=== PATIENT | male | born 1985 | race Caucasian/White ===

== ENCOUNTER 2018-02-17 15:09 | Emergency (ER) | payer OTHER ==
[~2018-02-17] VITALS: Ht 185.4 cm; Wt 91.2 kg
[2018-02-17 15:15] VITALS: TEMP 37.4; Ht 185.4 cm; Wt 91.2 kg
[2018-02-17] MEDS ORDERED: LIDOCAINE 1% BUFFERED INJ 5 ML VIAL INFIL STA (15:25)
[2018-02-17] MEDS ORDERED: IBUPROFEN 600 MG TAB PO STA (15:29)
--- NOTE | 2018-02-17 15:57 | DIAGNOSTIC IMAGING REPORT ---
L FINGER(S) MIN 2 VIEWS ROUTINE CLINICAL HISTORY: L index finger injury, screw punctured proximal. COMPARISON: None FINDINGS: Alignment of the left second finger is anatomic. There is no acute fracture or radiopaque foreign body within the left second finger. IMPRESSION: No acute fracture or radiopaque foreign body within the left second finger. Electronically signed by: Paul Bullard M.D. 02/17/2018 3:55 PM Dictated Date/Time: 02/17/2018 3:54 PM
--- NOTE | 2018-02-17 16:28 | EMERGENCY ROOM VISIT NOTE ---
ED Visit Note First contact with patient: 15:19 Chief Complaint: "Left index finger cut". History of Present Illness: This patient is a 32-year-old male who presents to the Emergency Department via private vehicle for evaluation of their left index finger laceration. Patient sustained the laceration while at work utilizing a drill when the drill bit passed through the object that he was drilling and into his left index finger. They report a minimal amount of bleeding initially. They note minimal linear numbness into the distal extremity described as the lateral aspect but spares the rest of the finger. They report no decreased range of motion of the affected digit. He notes a previous finger injury when he was younger that had a similar sensation in the finger which after time was better. Patient rates his current discomfort as a 6/10. Patient's Tetanus status is believed to be currently up-to-date. Medications: As noted below Allergies: None PMH: No pertinent SHx: Patient is employed and lives locally ROS: All pertinent positive and negative review of systems are appropriately documented in the History of Present Illness. Physical Exam: VITAL SIGNS - Vital signs and nursing notes were reviewed. GENERAL -32-year-old male appearing his stated age who is in no acute distress. Communicates well with provider and answers questions appropriately. SKIN - There is a 1 cm long circular in nature/puncture-like laceration noted proximal aspect of the left index finger at the lateral most region. The edges gape apart with traction. No foreign bodies appreciated. Upon further examination there are no deep structures including vessel, tendon, or bony structures appreciated. There is no active bleeding noted. MUSCULOSKELETAL - Laceration as described above. +5/5 strength appreciated of the affected digit. Full range of motion of the affected digit. NEUROLOGIC - Spinothalamic tract was found to be intact with ability to discriminate sharp versus dull sensation. No sensory defects of the dorsal column were appreciated utilizing light touch for evaluation. VASCULAR - Capillary refill was brisk. IMAGING: L FINGER(S) MIN 2 VIEWS ROUTINE CLINICAL HISTORY: L index finger injury, screw punctured proximal. COMPARISON: None FINDINGS: Alignment of the left second finger is anatomic. There is no acute fracture or radiopaque foreign body within the left second finger. IMPRESSION: No acute fracture or radiopaque foreign body within the left second finger. Electronically signed by: Paul Bullard M.D. 02/17/2018 3:55 PM Dictated Date/Time: 02/17/2018 3:54 PM ED Course: Patient was seen and evaluated by myself. Risks and benefits of performing primary wound closure versus no repair were discussed with the patient who verbalizes understanding. Verbal consent was obtained prior to performing the procedure. 2 cc of 1% buffered lidocaine was used to perform a local anesthetization of the left second digit. The wound was cleansed and prepped in the typical sterile fashion utilizing normal saline and Betadine. The wound was sterilely draped. Once proper anesthetization was established, the wound was further examined and demonstrated no deep involvement however once the wound was cleansed did begin with a pulsatile bleed. The wound was copiously irrigated with normal saline and Betadine. The wound was closed using 3 simple, 5-0 nylon sutures with the wound edges being well approximated. Pressure dressing applied 15 minutes was removed and no more bleeding was noted. He had excellent capillary refill. This was then dressed with a bacitracin dressing and finger splint. Patient tolerated the procedure well. No complications were met. He will be given Keflex for infection prophylaxis. He is to follow with Worker's Comp. regarding his injury. Patient educated on worrisome symptoms for return visit to the Emergency Department. Patient discharged to home in good condition. In the evaluation and treatment of this patient, the following differential diagnoses were considered: Finger Fracture, Finger Dislocation, Finger Sprain, Finger Contusion, Jersey Finger, or Mallet Finger. Current/Historical Medications Scheduled Cephalexin Monohydrate (Keflex), 500 MG PO TID Allergies Coded Allergies: No Known Allergies (Unverified , 02/17/18) Vital Signs Date Time Temp Pulse Resp B/P (MAP) Pulse Ox O2 Delivery O2 Flow Rate FiO2 02/17/18 16:53 84 18 137/81 97 02/17/18 15:15 37.4 111 20 148/96 97 Room Air Medications Administered Medications (Trade) Dose Ordered Sig/Leta Route Start Time Stop Time Status Last Admin Dose Admin Ibuprofen (Motrin Tab) 600 mg NOW STAT PO 02/17/18 15:29 02/17/18 15:30 DC 02/17/18 15:58 600 MG Departure Information Impression Primary Impression: Puncture wound of finger of left hand Dispostion Home / Self-Care Condition GOOD Prescriptions Cephalexin Monohydrate (Keflex) 500 Mg Cap 500 MG PO TID for 7 Days, #21 CAP Prov: Gage MarshallMIRANDA Jones 02/17/18 Referrals No Doctor, Assigned (PCP) Gaetano Deras MD Patient Instructions My [facility] Additional Instructions Discharge Instructions: You have received 3 sutures on your finger. These sutures are NOT dissolvable and WILL need to be removed by a health care provider in 12-14 days. You can return to the Emergency Department or contact your Primary Care Provider to have the sutures removed. Keflex 500mg every 8 hours for 1 week to help prevent infection. Please follow up with workers compensation and Hand specialist (Dr. Deras) if you have difficulties moving/ sensation in the finger. Please wear the splint for comfort until the sutures are removed. Proper wound care is essential for adequate wound healing and infection prevention. You can shower and clean the wound with soap and water. Do not scour over the wound, pat dry with a towel. Do not submerse the wound (i.e. bathe or dish wash) until the sutures have been removed. You can use an antibiotic ointment with a dressing over the wound for the next 3-4 days. After this time you may leave the wound dry and open to the air. If crust develops over the wound you can use a Q-tip to apply a 1:1 peroxide:water solution to clean the wound. Look for signs of infection of the wound including: increased pain, swelling, foul discharge, streaking, or increased temperature. If any of these are noticed you should return to the Emergency Department for further assessment and treatment. As with any laceration you may have received nerve damage to the surrounding tissues. This damage may or may not be permanent. You should keep the area covered with sunscreen for the first 6 months to 1 year when at risk for exposure to help minimize scarring. You can also use scar reducing creams or Vitamin E oil to help minimize scarring. For pain control, you can use the following [id number] medicines (if >12 yo): - Regular strength (325mg/tab) Tylenol (acetaminophen) 2 tabs every 4-6 hours as needed. Do not exceed 12 tablets in a 24 hour period. Avoid taking more than 3 grams (3 000 mg) of Tylenol per day. This includes any other sources of acetaminophen you may take on a regular basis. - Regular strength (200 mg/tab) Advil (ibuprofen) 1-2 tabs every 4-6 hours as needed. Do not exceed a dose of 3200 mg per day. Return to the emergency department if your symptoms worsen despite treatment course outlined above.
[2018-02-17] MEDS ORDERED: CEPH500C PO (16:38)
[2018-02-17 16:53] VITALS: BP 137/81; PULSE 84; O2SAT 97
== END 2018-02-17 17:00 | disposition home or self-care (01) ==
LOC: C.EDB 15:11 → C.EDD 17:00
DX: S61.231A Puncture wound without foreign body of left index finger without damage to nail, initial encounter (principal); W29.8XXA Contact with other powered hand tools and household machinery, initial encounter; Y93.89 Activity, other specified; Y99.0 Civilian activity done for income or pay